=== PATIENT | female | born 1960 | race African-American/Black ===

== ENCOUNTER 2019-02-02 18:40 | Inpatient (IN) | payer MEDICAID, OTHER ==
[~2019-02-02] VITALS: Ht 165.1 cm; Wt 122.5 kg
[2019-02-02] MEDS ORDERED: ASPIRIN 81MG TABLET PO ONE (19:15)
[2019-02-02 19:30] LABS: BASOPHILS % 0.4 % (0.0-2.0); EOSINOPHILS % 0.6 % (0.0-5.0); HEMATOCRIT. 44.3 % (36.0-48.0); LYMPHOCYTES % 35.7 % (20.0-50.0); MEAN CORPUSCULAR VOLUME 82.9 fL (81.0-99.0); MEAN PLATELET VOLUME 8.4 fl (7.4-10.4); MONOCYTES % 8.4 % (2.0-8.0); NEUTROPHILS % 54.9 % (40.0-76.0); PLATELET 324 x1000/uL (130-400); RED BLOOD CELL COUNT 5.34 mill/uL (4.2-5.4); RED CELL DISTRIBUTION WIDTH 15.4 % (11.6-14.6)
[2019-02-02 19:36] LABS: CHLORIDE 109 mEq/L (98-107)
[2019-02-02 19:39] LABS: PARTIAL THROMBOPLASTIN TIME 28.1 sec (23.4-31.0); PROTHROMBIN TIME 10.3 sec (9.6-11.0)
[2019-02-02 19:42] LABS: ETHANOL BLOOD < 10 mg/dL
[2019-02-02 20:39] LABS: CLARITY URINE CLEAR (CLEAR); COLOR URINE YELLOW (YELLOW); KETONES URINE NEGATIVE (NEGATIVE); LEUKOCYTE ESTERASE URINE NEGATIVE (NEGATIVE); NITRITE URINE NEGATIVE (NEGATIVE); OCCULT BLOOD URINE NEGATIVE (NEGATIVE); PROTEIN URINE NEGATIVE (NEGATIVE); SPECIFIC GRAVITY URINE 1.015 (1.005-1.030)
[2019-02-02 21:02] LABS: *AMPHETAMINES SCREEN URINE NEGATIVE (NEGATIVE); *BARBITURATES SCREEN URINE NEGATIVE (NEGATIVE); *BENZODIAZEPINES SCREEN URINE NEGATIVE (NEGATIVE); *COCAINE SCREEN URINE NEGATIVE (NEGATIVE); METHADONE URINE SCREEN NEGATIVE (NEGATIVE)
[2019-02-02 21:03] LABS: CANNABINOID URINE SCREEN PRESUMTIVE POSITIVE (NEGATIVE); OPIATES URINE SCREEN NEGATIVE (NEGATIVE); PHENCYCLIDINE URINE SCREEN NEGATIVE (NEGATIVE)
[2019-02-02 23:30] VITALS: BP 122/95
[2019-02-03] MEDS ORDERED: CLONIDINE 0.1MG TABLET PO PRN (00:45)
[2019-02-03] MEDS ORDERED: HYDROCODONE/ACETAMINOPHEN 5/325MG TABLET PO PRN (00:45)
[2019-02-03] MEDS ORDERED: FLOV44 IH (00:59)
[2019-02-03] MEDS ORDERED: OMEP40CA34 PO (00:59)
[2019-02-03] MEDS ORDERED: GABA800T97 PO (00:59)
[2019-02-03] MEDS ORDERED: LISI-604 PO (00:59)
[2019-02-03] MEDS ORDERED: FLUTICASONE NAS (00:59)
[2019-02-03] MEDS ORDERED: AMLO10TA80 PO (00:59)
[2019-02-03] MEDS ORDERED: NITR0.4T49 SL (00:59)
[2019-02-03] MEDS ORDERED: VITA-340 PO (00:59)
[2019-02-03] MEDS ORDERED: ATOR-2 PO (00:59)
[2019-02-03] MEDS ORDERED: NITROGLYCERIN 0.4MG TABLET SL SL PRN (01:00)
[2019-02-03] MEDS: OMEPRAZOLE 20MG CAPSULE EXTENDED RELEASE PO SCH (06:32)
[2019-02-03 07:23] LABS: CHLORIDE 110 mEq/L (98-107)
[2019-02-03 07:35] LABS: PHOSPHORUS 3.6 mg/dL (2.5-4.9)
[2019-02-03 07:46] LABS: BASOPHILS % 0.2 % (0.0-2.0); EOSINOPHILS % 0.8 % (0.0-5.0); HEMATOCRIT. 43.9 % (36.0-48.0); HEMOGLOBIN. 14.9 g/dL (12.0-16.0); LYMPHOCYTES % 39.1 % (20.0-50.0); MEAN CORPUSCULAR HEMOGLOBIN 28.1 pg (28.0-32.0); MEAN CORPUSCULAR VOLUME 82.9 fL (81.0-99.0); MEAN PLATELET VOLUME 8.8 fl (7.4-10.4); MONOCYTES % 8.1 % (2.0-8.0); NEUTROPHILS % 51.8 % (40.0-76.0); PLATELET 313 x1000/uL (130-400); RED CELL DISTRIBUTION WIDTH 15.1 % (11.6-14.6)
[2019-02-03 08:00] VITALS: BP 137/83
[2019-02-03] MEDS: ENOXAPARIN 30MG/0.3ML SYR SUBCUT SCH ×2 (08:58→20:52)
[2019-02-03] MEDS: LISINOPRIL 20MG TABLET PO SCH (08:59)
[2019-02-03] MEDS: FLUTICASONE PROPIONATE 50MCG/SPRAY BOTTLE BOTHNSTRLS SCH ×2 (08:59→17:20)
[2019-02-03] MEDS: GABAPENTIN 400MG CAPSULE PO SCH ×3 (08:59→17:19)
[2019-02-03] MEDS ORDERED: VITAMIN E 1000 UNIT PO SCH (09:00)
[2019-02-03] MEDS ORDERED: AMLODIPINE 10MG TABLET PO SCH (09:00)
[2019-02-03] MEDS ORDERED: FLUTICASONE PROPIONATE 220 MCG IH SCH (09:00)
[2019-02-03] MEDS ORDERED: MEDICATION NOT ON FORMULARY EA (Gabapentin 800 MG) PO SCH (09:00)
[2019-02-03] MEDS ORDERED: BUDESONIDE 0.5MG/2ML NEB HHN SCH (09:00)
[2019-02-03] MEDS ORDERED: MEDICATION NOT ON FORMULARY EA (Omeprazole 40 MG) PO SCH (09:00)
[2019-02-03] MEDS: VITAMIN E 1,000 UNIT CAPSULE PO SCH (09:00)
[2019-02-03] MEDS ORDERED: ENOXAPARIN 40MG/0.4ML SYR SUBCUT SCH ×2 (09:00)
[2019-02-03] MEDS ORDERED: ENOXAPARIN 30MG/0.3ML SYR SUBCUT SCH (09:00)
[2019-02-03] MEDS ORDERED: FLUTICASONE 50 MCG NAS SCH (09:00)
[2019-02-03 12:00] VITALS: BP 159/97
[2019-02-03] MEDS ORDERED: METOPROLOL TARTRATE 25MG TABLET PO SCH (12:45)
[2019-02-03] MEDS ORDERED: ONDANSETRON HCL 4MG/2ML INJ IV PRN (13:45)
[2019-02-03] MEDS ORDERED: DOCUSATE SODIUM 100MG CAPSULE PO PRN (13:45)
[2019-02-03] MEDS ORDERED: SODIUM CHLORIDE 0.9% 1,000 ML IV SCH (14:30)
[2019-02-03] MEDS: DILTIAZEM HCL 180MG CAPSULE CD 24HR PO SCH (15:07)
[2019-02-03] MEDS: ACETAMINOPHEN 325MG TABLET PO PRN ×2 (15:16→20:51)
[2019-02-03 16:00] VITALS: BP 151/96
[2019-02-03] MEDS ORDERED: DIGOXIN 125MCG TABLET PO SCH (18:00)
[2019-02-03 20:00] VITALS: BP 145/82
[2019-02-04] VITALS: BP 130/89
[2019-02-04 04:00] VITALS: BP 117/68
[2019-02-04] MEDS: OMEPRAZOLE 20MG CAPSULE EXTENDED RELEASE PO SCH (06:16)
[2019-02-04 07:33] LABS: BASOPHILS % 0.7 % (0.0-2.0); EOSINOPHILS % 0.6 % (0.0-5.0); HEMATOCRIT. 43.2 % (36.0-48.0); HEMOGLOBIN. 14.9 g/dL (12.0-16.0); LYMPHOCYTES % 36.9 % (20.0-50.0); MEAN CORPUSCULAR HEMOGLOBIN 28.6 pg (28.0-32.0); MEAN CORPUSCULAR VOLUME 82.6 fL (81.0-99.0); MEAN PLATELET VOLUME 8.8 fl (7.4-10.4); NEUTROPHILS % 54.8 % (40.0-76.0); PLATELET 316 x1000/uL (130-400); RED BLOOD CELL COUNT 5.23 mill/uL (4.2-5.4); RED CELL DISTRIBUTION WIDTH 15.1 % (11.6-14.6)
[2019-02-04 08:00] VITALS: BP 145/94
[2019-02-04] MEDS: LISINOPRIL 20MG TABLET PO SCH (09:28)
[2019-02-04] MEDS: DILTIAZEM HCL 180MG CAPSULE CD 24HR PO SCH (09:28)
[2019-02-04] MEDS: GABAPENTIN 400MG CAPSULE PO SCH (09:28)
[2019-02-04] MEDS: VITAMIN E 1,000 UNIT CAPSULE PO SCH (09:28)
[2019-02-04] MEDS: FLUTICASONE PROPIONATE 50MCG/SPRAY BOTTLE BOTHNSTRLS SCH (09:28)
[2019-02-04] MEDS: ENOXAPARIN 30MG/0.3ML SYR SUBCUT SCH (09:29)
[2019-02-04 09:30] LABS: CHLORIDE 112 mEq/L (98-107)
[2019-02-04 09:38] LABS: LDL CHOLESTEROL 113 mg/dL (5-100)
[2019-02-04 09:40] LABS: HDL CHOLESTEROL 34 mg/dL (40-59)
== END 2019-02-04 10:05 | disposition left against medical advice (07) | DRG 201 ==
LOC: ER 18:40 → EDBEDREQ 21:32 → EDBEDREQTM 21:32 → ENRESERV 22:01 → 8WST 23:16
PROVIDERS: ADMIT Family Medicine Adult Medicine; ATTEND Family Medicine Adult Medicine
DX: I47.1 Supraventricular tachycardia (principal); G62.9 Polyneuropathy, unspecified; D72.829 Elevated white blood cell count, unspecified; I10 Essential (primary) hypertension; J45.909 Unspecified asthma, uncomplicated; E78.5 Hyperlipidemia, unspecified; Z53.29 Procedure and treatment not carried out because of patient's decision for other reasons; F12.90 Cannabis use, unspecified, uncomplicated; Z82.49 Family history of ischemic heart disease and other diseases of the circulatory system; Z88.1 Allergy status to other antibiotic agents; Z79.82 Long term (current) use of aspirin; Z79.899 Other long term (current) drug therapy
CPT/HCPCS: 36415; 71045; 80048; 80061; 80305; 80320; 81003; 83735; 83880; 84100; 84443; 84484; 93005; 93306; 93970; 99285; J1650; J7030; G0480